=== PATIENT | male | born 1970 | race Caucasian/White ===

== ENCOUNTER 2021-10-22 19:26 | Emergency (ER) | payer BC, SELFPAY ==
[2021-10-22] VITALS (46 sets, daily range): BP systolic 104–141; BP diastolic 57–87; PULSE 58–117; RESP 11–22; TEMP 36.1; O2SAT 94–98
--- NOTE | 2021-10-22 19:30 | RT.EKG_ITS ---
APPROVED REPORT Exam: Resting ECG Reason for Exam: chest pain Patient Location: E HR:105 bpm ECG Measurements Heart Rate 105 AXIS ND [id number] P [id number] QRSd 102 QRS 24 QT 350 T -29 QTc 463 Conclusion Atrial fibrillation...V-rate 67-143, irreg A-activity Nonspecific T abnormalities, inferior leads...T <-0.10mV, II III aVF ST elev, probable normal early repol pattern...ST elevation, age<55. Afib. Benign early repolarization. 1mm ST elevation in I and aVL but does not meet criteria for STEMI . T wave inversion in III and aVF. No old EKG to compare. I have reviewed and interpreted ECG and agree with software generated interpretation.
--- NOTE | 2021-10-22 19:30 | RT.EKG_ITS ---
APPROVED REPORT Exam: Resting ECG Reason for Exam: chest pain Patient Location: E HR:68 bpm ECG Measurements Heart Rate 68 AXIS MT [id number] P [id number] QRSd 98 QRS 42 QT 392 T -10 QTc 418 Conclusion Atrial fibrillation...V-rate 62- 68, irreg A-activity ST elev, probable normal early repol pattern...ST elevation, age<55 Physician:ST elevation is NOT STEMI.Likely repol. inverted t wave in III. Morphology unchanged from E KG done 3 Hrs prior during code black.
--- NOTE | 2021-10-22 20:12 | W.ED.GENAD ---
Discharge Plan Disposition Patient Disposition: HOME Condition: Stable Discharge Details Clinical Impression: Atrial fibrillation, Dehydration Primary Care Provider: None,None ED Provider: Sondra Lemus Home Meds and New Rx's Prescriptions: Continued diltiazem HCl 240 mg capsule,extended release 24 hr 240 mg PO DAILY loratadine [Claritin] 10 mg Tablet 10 mg PO DAILY Discharge Instructions Instructions: A-fib (Atrial Fibrillation) (ED), Dehydration (ED) Additional Instructions: Your labs are concerning for dehydration. Please encourage water intake. Your atrial fibrillation, while not back in normal sinus rhythm, is within a normal rate. As we discussed, your risk for stroke over the next year is quite low at 0.6%. Please take aspirin daily. Full dose aspirin is available [id number]. You received a dose tonight and next dose will not be due until tomorrow. Please continue with your diltiazem as previously prescribed. I have referred you to local primary care, care management should call you to schedule this. I have also referred you to cardiology for continued follow-up, please call to schedule follow-up appointment. Please also return tomorrow to meet with respiratory therapy to have Holter monitor placed. If you develop chest pain, shortness of breath, lightheadedness, or other new/worsening symptom please seek care urgently once again. Referrals: Ashly Gipson MD [ [facility]FF [facility]YS[facility]IAN] - Discharge Orders Other Ambulatory Orders: Holter Monitor (Routine) Timeframe: 1 Week Facility: [facility] - Location: Respiratory Therapy Ordered By: Sondra Lemus Medical Decision Making Patient is a pleasant 51-year-old male, accompanied by his significant other, with chief complaint of atrial fibrillation. He has had this 1 other time, about 2 years ago, both episodes brought on when mountain biking. Reports that he was diagnosed with atrial fibrillation at an emergency department in [place] and was electronically cardioverted at that time. He has been on 240 mg p.o. diltiazem since then, typically doses himself at night. States that he went into atrial fibrillation at 6 PM while mountain biking this evening. States that he has more exertional dyspnea when she is in atrial fibrillation but is otherwise asymptomatic. No palpitations, chest pain, shortness of breath. Denies any nausea, lightheadedness. HPI General Date/Time Provider Initiated Documentation: 10/22/21 19:41. Limitations to Documentation: no limitations. Information obtained by: patient and RN notes reviewed. History of Present Illness 51 year old M presents to the emergency department with the chief complaint of atrial fibrillation, described as moderate and similar to prior episodes, Quality is described as other (no pain, more readily fatigued with exertion), Patient reports no radiation. Patient started experiencing this hour(s) and it has been now resolved. Immobilization improves symptom(s), Movement worsens symptoms . Patient notes diaphoresis; denies chest pain, cough, fever/chills, malaise, nausea/vomiting, rash, shortness of breath and syncope. Patient did receive the following treatments prior to arrival, none Related Data Home Medications Medication Instructions Recorded Confirmed diltiazem HCl 240 mg capsule,24 240 mg PO DAILY 09/30/21 10/22/21 hr,extended release loratadine 10 mg tablet (Claritin) 10 mg PO DAILY 10/22/21 10/22/21 Allergies Allergy/AdvReac Type Severity Reaction Status Date / Time kiwi Allergy Severe Unverified 10/22/21 19:42 General Stated Complaint: Palpitatns JERI: 2 Review of Systems Constitutional Constitutional: Reports as per HPI, Denies fever(s) and Denies lethargy Eyes Eyes: Denies change in vision ENT Ears, Nose, Mouth, and Throat: Denies dizziness Cardiovascular Cardiovascular: Reports as per HPI Respiratory Respiratory: Reports as per HPI, Denies chest congestion, Denies cough, Denies pain on inspiration and Denies pain with cough Gastrointestinal Gastrointestinal: Reports as per HPI, Denies abdominal pain, Denies diarrhea, Denies nausea and Denies vomiting Genitourinary Genitourinary: Denies system reviewed and no additional complaints, except as documented (denies change in urinary habits) Musculoskeletal Musculoskeletal: Reports as per HPI and Denies back pain Integumentary/Breasts Skin/Breast: Reports as per HPI and Denies rash Neurologic Neurologic: Reports as per HPI and Denies dizziness PFSH All Active Problems (Updated 10/23/21 @ 00:08 by JACEK Reeves) Atrial fibrillation (Chronic) Dehydration (Acute) Medical History (Updated 10/23/21 @ 00:08 by JACEK Reeves) History of blood transfusion Social History Smoking/Tobacco Use Status: Never Smoking risk assessment performed?: Yes Substance use type: does not use Exam Const General: cooperative, healthy appearing, comfortable, no acute distress and well developed Nutritional Appearance: average body habitus and well nourished Orientation: alert, awake and oriented x3 [facility] Head: normal to inspection Ears: hearing grossly normal bilaterally Mouth: moist mucous membranes Chest Chest: normal inspection of the chest, normal palpation of entire chest wall and no crepitus Resp Effort & Inspection: normal respiratory effort, able to speak in complete sentences and no respiratory distress Auscultation: clear to auscultation bilaterally, no rales, no rhonchi and no wheezes Cardio Rate: regular rate Rhythm: regular rhythm Heart Sounds: S1 normal and S2 normal GI Inspection: normal to inspection, no edema and non-distended Palpation: soft, no hepatosplenomegaly, not firm, no guarding, not rigid and nontender Auscultation: normal bowel sounds Back/Spine/Pelvis Back: no CVA tenderness Thoracic/Lumbar Spine: thoracic and lumbar spine normal to inspection Skin General skin exam: no rashes or lesions noted Trauma: no lacerations or abrasions Neuro General: patient alert, patient awake and patient oriented x3 Cognition: normal cognition Speech: speech normal Gait: normal gait Extrem General: normal to inspection, capillary refill normal, no pedal edema, no calf tenderness and normal gait Psych Appearance: grossly normal and well kempt Mental Status: mental status grossly normal Speech and Movement: speech and movement normal Course Vital Signs Vital signs: Vital Signs Temperature 36.1 C L 10/22/21 19:38 Pulse 109 H 10/22/21 19:38 Respiratory Rate 15 10/22/21 19:38 Blood Pressure 141/78 H 10/22/21 19:38 Pulse Oximetry 97 10/22/21 19:38 Temperature 36.1 C L 10/22/21 19:38 Temperature Source Temporal Artery Scan 10/22/21 19:38 Pulse 109 H 10/22/21 19:38 Respiratory Rate 15 10/22/21 19:38 Respiratory Effort 10/22/21 19:38 Blood Pressure 141/78 H 10/22/21 19:38 Blood Pressure Position Supine 10/22/21 19:38 Pulse Oximetry 97 10/22/21 19:38 Pain Level 0 10/22/21 19:38
--- NOTE | 2021-10-22 20:15 | DI.RAD_ITS ---
Exam(s) XR PORTABLE CHEST AP EXAM: XR PORTABLE CHEST AP CLINICAL HISTORY: a.fib TECHNIQUE: 2D digital imaging was performed of the chest. One image was obtained. An AP view was ob tained. COMPARISON: No exams were available for comparison FINDINGS: MEDIASTINUM: Normal. HEART: Normal. PULMONARY VASCULATURE: Normal. LUNGS: Clear. PLEURAL SPACE: No pleural effusion or pneumothorax. BONE:Within normal limits for the patient's age. OTHER FINDINGS:Normal. IMPRESSION: No acute pulmonary findings. DATA REPOSITORY: RADIATION DOSE DELIVERED:
[2021-10-22 20:37] LABS: Abs Immature Grans 0.03 10^3/uL (0.0-0.06); Absolute Basophil Count 0.04 10^3/uL (0.0-0.2); Absolute Eosinophil Count 0.17 10^3/uL (0.0-0.7); Absolute Lymphocyte Count 1.95 10^3/uL (1.2-3.4); Absolute Monocyte Count 0.64 10^3/uL (0.1-0.8); Absolute Neutrophil Count 6.05 10^3/uL (1.2-6.7); Basophils % 0.5; Eosinophils % 1.9; HCT 43.9 % (40.0-50.0); HGB 15.9 g/dL (13.5-17.5); Immature Grans % 0.3; MCH 30.3 pg (27.0-33.0); MCHC 36.2 % (32.0-36.0); MCV 84 fL (80-95); MPV 10.9 fL (8.0-11.0); Monocytes % 7.2; Neutrophils % 68.1; Platelet Count 247 10^3/uL (130-400); RBC 5.24 10^6/uL (4.36-5.78); RDW 11.9 % (11.8-14.1); RDW-SD 36.2 fL; WBC 8.88 10^3/uL (4.4-10.8)
[2021-10-22] MEDS: dilTIAZem 25 MG/5 ML VIAL 15 MG IVP (20:45)
[2021-10-22] MEDS: Normal Saline 1,000 ML 1000 ML IV ×2 (20:45→22:00)
[2021-10-22 21:01] LABS: ALT 41 U/L (16-63); AST 26 U/L (15-37); Alkaline Phosphatase 79 U/L (46-116); Anion Gap 9.8 mmol/L (3-11); BUN 21 mg/dL (7-18); Bilirubin, Total 0.8 mg/dL (0.2-1.0); CO2 27.2 mmol/L (21.0-32.0); CREATININE 1.4 mg/dL (0.70-1.30); Calcium 9.1 mg/dL (8.5-10.1); Chloride 102 mmol/L (98-107); Estimated GFR 61.61 (mL/min/1.73m2); Glucose 136 mg/dL (74-106); Potassium 3.7 mmol/L (3.5-5.1); Sodium 139 mmol/L (136-145); Total Protein 7.9 g/dL (6.4-8.2); Troponin I < 50 ng/L (<or=60)
[2021-10-22 21:12] LABS: Magnesium 2.1 mg/dL (1.8-2.4); TSH (W/Ref FT4) 2.74 uIU/mL (0.36-3.74)
--- NOTE | 2021-10-22 21:17 | DI.VRAD_ITS ---
PROCEDURE INFORMATION: Exam: XR Chest Exam date and time: 10/22/2021 8:38 PM Age: 51 years old Clinical indication: Other: A. Fib TECHNIQUE: Imaging protocol: Radiologic exam of the chest. Views: 1 view. COMPARISON: No relevant prior studies available. FINDINGS: Lungs: Chronic interstitial prominence. No consolidation. Pleural spaces: No pleural effusion. No pneumothorax. Heart/Mediastinum: Mild cardiomegaly. Bones/joints: Unremarkable. IMPRESSION: No acute findings. Dictated and Authenticated by: Arsalan Laird MD. Ordering:AMBREEN Amaro MD
[2021-10-22] MEDS: Aspirin 325 MG TAB PO (22:13)
--- NOTE | 2021-10-22 23:00 | RT.EKG_ITS ---
APPROVED REPORT Exam: Resting ECG Reason for Exam: chest pain Patient Location: E HR:68 bpm ECG Measurements Heart Rate 68 AXIS FL [id number] P [id number] QRSd 98 QRS 42 QT 392 T -10 QTc 418 Conclusion Atrial fibrillation...V-rate 62- 68, irreg A-activity ST elev, probable normal early repol pattern...ST elevation, age<55 Physician:ST elevation is NOT STEMI.Likely repol. inverted t wave in III. Morphology unchanged from E KG done 3 Hrs prior during code black.
[2021-10-22 23:52] LABS: Troponin I 51 ng/L (<or=60)
[2021-10-23] VITALS: BP 125/88; PULSE 63; PULSE 80; RESP 24; O2SAT 96
[2021-10-23 00:01] VITALS: PULSE 64; RESP 23; O2SAT 95
[2021-10-23 00:19] VITALS: BP 125/88; PULSE 63; RESP 23; TEMP 36.1; O2SAT 95
--- NOTE | 2021-10-23 17:16 | CMACTNOTE_ITS ---
- If Service Date Differs Date of service: 10/23/21 Time of Service: 17:16 Care Management Activity Note Buck is seen in the ED for atrial fibrillation and dehydration. At the request of ED provider, AUDRA coordinates a referral to Shira De MD, of [facility], on-call provider, to assist Buck in obtaining a follow up appointment and in establishing care with a PCP. He has BCBS for insurance.
== END 2021-10-23 00:26 | disposition home or self-care (01) ==
PROVIDERS: Emergency Provider Physician Assistant
DX: I48.91 Unspecified atrial fibrillation (principal); E86.0 Dehydration
CPT/HCPCS: 36415; 80053; 93005; 96361; 96374; 99284; 71045; 83735; 84443; 84484; 85025; 93010; 99285

== ENCOUNTER 2021-10-23 09:20 | Outpatient (RCR) | payer BC, SELFPAY ==
--- NOTE | 2021-10-23 14:30 | HOLTER_ITS ---
APPROVED REPORT Conclusion This is a 48-hour Holter monitor, reportedly ordered for atrial fibrillation Rhythm throughout was sinus with an average heart rate of 64. Minimum was 47, maximum 129 There were rare isolated ventricular ectopic beats There were occasional atrial premature beats There was no atrial fibrillation, no high-grade AV block, no pauses greater than 3 seconds There were no apparent patient symptoms
== END 2021-11-13 23:59 | disposition home or self-care (01) ==
LOC: RT 09:20
PROVIDERS: Visit Provider Physician Assistant
DX: I48.91 Unspecified atrial fibrillation (principal); I49.1 Atrial premature depolarization
CPT/HCPCS: 93225; 93226

== ENCOUNTER 2022-02-11 14:33 | Emergency (ER) | payer BC, SELFPAY ==
--- NOTE | 2022-02-11 14:30 | RT.EKG_ITS ---
APPROVED REPORT Exam: Resting ECG Reason for Exam: afib Patient Location: E HR:76 bpm ECG Measurements Heart Rate 76 AXIS [place] 157 P 22 QRSd 103 QRS 33 QT 379 T -21 QTc 427 Conclusion Sinus rhythm.. Nonspecific T abnormalities, inferior leads...T <-0.10mV, II III aVF ST elev, probable normal early repol pattern...ST elevation, age<55
[2022-02-11 14:40] VITALS: BP 141/89; PULSE 77; RESP 18; O2SAT 97
--- NOTE | 2022-02-11 15:17 | W.ED.GENAD ---
Discharge Plan Disposition Patient Disposition: Home Condition: Improving Discharge Details Clinical Impression: PAF (paroxysmal atrial fibrillation) Primary Care Provider: None,None ED Provider: Vishnu Guzman Home Meds and New Rx's Prescriptions: Continued diltiazem HCl 240 mg capsule,extended release 24 hr 240 mg PO DAILY No Action loratadine [Claritin] 10 mg Tablet 10 mg PO DAILY Discharge Instructions Instructions: A-fib (Atrial Fibrillation) (ED) Additional Instructions: Please follow-up for outpatient stress testing, the office will call you with an appointment time. We have also asked for a local primary care follow-up. There is some evidence that Mandy may be preferred to Claritin in preventing any cardiac arrhythmias. Consider stopping Claritin and beginning Mandy daily if needed for allergies. Return for recurrent tachycardia, palpitations, profound weakness, development of chest pain, or any other acute concerns. Please continue daily aspirin. Limit physical activity to light exertion only. Laboratory Results - last 24 hr 02/11/22 02/11/22 02/11/22 15:24 15:24 15:24 WBC 8.44 RBC 5.39 Hgb 16.3 Hct 45.4 MCV 84 MCH 30.2 MCHC 35.9 RDW 12.2 Plt Count 236 MPV 10.4 Immature Gran % 0.6 Neutrophils % 62.1 Lymphocytes % 24.1 Monocytes % 7.6 Eosinophils % 5.1 Basophils % 0.5 Nucleated RBC % 0.0 Absolute Neutrophils 5.25 Absolute Lymphocytes 2.03 Absolute Monocytes 0.64 Absolute Eosinophils 0.43 Absolute Basophils 0.04 Sodium 139 Cancelled Potassium 3.6 Cancelled Chloride 103 Cancelled Carbon Dioxide 29.4 Cancelled Anion Gap 6.6 Cancelled BUN 21 H Cancelled Creatinine 1.2 Cancelled Est GFR (CKD-EPI 2020) 74.13 Cancelled Glucose 126 H Cancelled Calcium 9.2 Cancelled Magnesium 2.0 Total Bilirubin 0.4 Cancelled AST 28 Cancelled ALT 59 Cancelled Alkaline Phosphatase 76 Cancelled Troponin I 61 H Total Protein 7.8 Cancelled Albumin 4.0 Cancelled TSH 2.97 Urine Color Urine Clarity Urine pH Ur Specific [place] Urine Protein Urine Ketones Urine Blood Urine Nitrite Urine Bilirubin Urine Urobilinogen Ur Leukocyte Esterase Urine Glucose 02/11/22 02/11/22 15:47 16:54 WBC RBC Hgb Hct MCV MCH MCHC RDW Plt Count MPV Immature Gran % Neutrophils % Lymphocytes % Monocytes % Eosinophils % Basophils % Nucleated RBC % Absolute Neutrophils Absolute Lymphocytes Absolute Monocytes Absolute Eosinophils Absolute Basophils Sodium Potassium Chloride Carbon Dioxide Anion Gap BUN Creatinine Est GFR (CKD-EPI 2020) Glucose Calcium Magnesium Total Bilirubin AST ALT Alkaline Phosphatase Troponin I < 50 Total Protein Albumin TSH Urine Color Yellow Urine Clarity Clear Urine pH 5.5 Ur Specific [place] 1.025 Urine Protein Negative Urine Ketones Negative Urine Blood Negative Urine Nitrite Negative Urine Bilirubin Negative Urine Urobilinogen 0.2 Ur Leukocyte Esterase Negative Urine Glucose Negative Medical Decision Making This is a 51-year-old male with a history of paroxysmal atrial fibrillation. States he was initially diagnosed at an emergency department in [place] approximate 4 years ago when he had cardioversion performed. Recurred this late summer, he was seen in this ER, found to be dehydrated and improved with fluids. He subsidy placed on a Holter monitor which showed no further episodes of atrial fibrillation. Patient states he usually takes his diltiazem once in the evening at night. This morning he woke up had coffee, single glass of water, and went mountain biking with a high level of exertion. He subsidy felt weak. He did not notice a fast heart rate but his watch noted a maximum heart rate of proxy 170 and episodes of A. fib, although they were not correlated to the fast heart rate. Patient arrives feeling improved. He is in a normal sinus rhythm with a rate of 70. With rising at the bedside his pulse rate is approximately 20 points. Likely a component of dehydration. Patient does also take a daily Claritin but does not take decongestant beyond the antihistamine. We reviewed his electronic tracings on his phone which show atrial fibrillation while he was symptomatic today. Its not clear what heart rate was associated with this. Upon arrival the patient is in a normal sinus rhythm with a pulse approximately 75. Patient placed on a bottom turner, screening labs including troponin obtained he is referred for a screening chest x-ray. Chest x-ray unremarkable. Patient CBC, basic chemistries are without significant finding. His initial troponin was 61, repeat was less than 50. This [place] area discretely abnormal troponin may likely be due to persistent tachycardia that the patient describes during exercise. Nonetheless, I will order an outpatient stress test and we will arrange cardiology follow-up. I will have him limit physical exertion and he will continue daily aspirin as well as his calcium channel hoda. Patient stable, improved, without discomfort. He understands indications to return to the ER. Lab Data Lab results reviewed: Yes I reviewed the patient's lab results. Labs: Laboratory Results - last 24 hr 02/11/22 02/11/22 02/11/22 15:24 15:24 15:24 WBC 8.44 RBC 5.39 Hgb 16.3 Hct 45.4 MCV 84 MCH 30.2 MCHC 35.9 RDW 12.2 Plt Count 236 MPV 10.4 Immature Gran % 0.6 Neutrophils % 62.1 Lymphocytes % 24.1 Monocytes % 7.6 Eosinophils % 5.1 Basophils % 0.5 Nucleated RBC % 0.0 Absolute Neutrophils 5.25 Absolute Lymphocytes 2.03 Absolute Monocytes 0.64 Absolute Eosinophils 0.43 Absolute Basophils 0.04 Sodium 139 Cancelled Potassium 3.6 Cancelled Chloride 103 Cancelled Carbon Dioxide 29.4 Cancelled Anion Gap 6.6 Cancelled BUN 21 H Cancelled Creatinine 1.2 Cancelled Est GFR (CKD-EPI 2020) 74.13 Cancelled Glucose 126 H Cancelled Calcium 9.2 Cancelled Magnesium 2.0 Total Bilirubin 0.4 Cancelled AST 28 Cancelled ALT 59 Cancelled Alkaline Phosphatase 76 Cancelled Troponin I 61 H Total Protein 7.8 Cancelled Albumin 4.0 Cancelled TSH 2.97 Urine Color Urine Clarity Urine pH Ur Specific [place] Urine Protein Urine Ketones Urine Blood Urine Nitrite Urine Bilirubin Urine Urobilinogen Ur Leukocyte Esterase Urine Glucose 02/11/22 02/11/22 15:47 16:54 WBC RBC Hgb Hct MCV MCH MCHC RDW Plt Count MPV Immature Gran % Neutrophils % Lymphocytes % Monocytes % Eosinophils % Basophils % Nucleated RBC % Absolute Neutrophils Absolute Lymphocytes Absolute Monocytes Absolute Eosinophils Absolute Basophils Sodium Potassium Chloride Carbon Dioxide Anion Gap BUN Creatinine Est GFR (CKD-EPI 2020) Glucose Calcium Magnesium Total Bilirubin AST ALT Alkaline Phosphatase Troponin I < 50 Total Protein Albumin TSH Urine Color Yellow Urine Clarity Clear Urine pH 5.5 Ur Specific [place] 1.025 Urine Protein Negative Urine Ketones Negative Urine Blood Negative Urine Nitrite Negative Urine Bilirubin Negative Urine Urobilinogen 0.2 Ur Leukocyte Esterase Negative Urine Glucose Negative HPI General Mode of arrival: ambulatory. Date/Time Provider Initiated Documentation: 02/11/22 14:37. Limitations to Documentation: no limitations. Information obtained by: patient. History of Present Illness 51 year old M presents to the emergency department with the chief complaint of Weakness, question recurrent A. fib, described as moderate, and is localized to the chest. and it has been now resolved. No relieving factors improve symptom(s), No exacerbating factors reported . Patient notes weakness; denies chest pain, headaches, shortness of breath and syncope. Patient did receive the following treatments prior to arrival, none Related Data Home Medications Medication Instructions Recorded Confirmed diltiazem HCl 240 mg capsule,24 240 mg PO DAILY 09/30/21 10/22/21 hr,extended release loratadine 10 mg tablet (Claritin) 10 mg PO DAILY 10/22/21 10/22/21 Allergies Allergy/AdvReac Type Severity Reaction Status Date / Time kiwi Allergy Severe Unverified 10/22/21 19:42 General Stated Complaint: GenMedical JERI: 3 Review of Systems Narrative: No syncope. Noted A. fib on his heart rate monitor. No significant shortness of breath. No chest pain. Otherwise well. 6 systems reviewed PFSH All Active Problems (Updated 02/11/22 @ 18:13 by Vishnu Guzman MD) PAF (paroxysmal atrial fibrillation) (Acute) Medical History History of blood transfusion Social History Smoking/Tobacco Use Status: Never Smoking risk assessment performed?: Yes Alcohol Intake: current Alcohol Intake frequency: 0-2 drinks per day Alcohol type: beer Substance use type: does not use Do you feel safe at home: Yes Do you feel safe in your relationship?: Yes Exam Narrative Exam Narrative: GEN: awake, alert, oriented 3. Pleasant, well groomed, interactive. HEAD: Normocephalic, atraumatic ENT: Mucous membranes moist, oropharynx unremarkable, External ear exam unremarkable EYES: PERRL, EOMI NECK: Full ROM, no TIFFANIE, no menigismus CHEST/RESP: Nontender, clear to auscultation bilateral, no wheeze/rhonchi/rales CARDIOVASCULAR: RRR, no murmur, rub joseph. 2+ Rad pulse bilateral ABDOMEN: Soft, nontender, no mass. +Bowel sounds EXT: Full ROM, no edema, no rash Neuro: Grossly normal neurologic exam, conversant, interactive. Psych: Speech fluent, thoughts congruent, affect normal Course Vital Signs Vital signs: Vital Signs Pulse 77 02/11/22 14:40 Respiratory Rate 18 02/11/22 14:40 Blood Pressure 141/89 H 02/11/22 14:40 Pulse Oximetry 97 02/11/22 14:40 Pulse 77 02/11/22 14:40 Respiratory Rate 18 02/11/22 14:40 Respiratory Effort 02/11/22 15:00 Respiratory Depth Normal 02/11/22 15:00 Respiratory Pattern Normal 02/11/22 15:00 Blood Pressure 141/89 H 02/11/22 14:40 Blood Pressure Position Supine 02/11/22 14:40 Pulse Oximetry 97 02/11/22 14:40 Oxygen Delivery Method Room Air 02/11/22 14:40 Oxygen Flow Rate 0 02/11/22 14:40 PAWSS Have you Been Recently Intoxicated or Drunk Within the Last 30 days?: No Have you Ever Experienced Previous Episodes of Alcohol Withdrawal?: No Have you ever Experienced Withdrawal Seizures?: No Have you ever Experienced Delirium Tremens(DT)s?: No Have you ever undergone Alcohol Rehabilitation Treatment (i.e, inpt ot outpatient treatment programs)?: No Have you ever Experienced Blackouts?: No Have you ever Combined Alcohol with other Downers within the last 90 days?: No Have you ever Combined Alcohol with any other Substance of Abuse during the last 90 days?: No Positive Blood Alcohol level on Presentation? [PCS.BAL]: No Evidence of Increased Autonomic Activity (i.e. HR>120, tremor, sweating, agitation, nausea)?: No Result: 0
--- NOTE | 2022-02-11 15:18 | NUR.NOTE ---
Nursing Note: Referral given to Care Management for needs PCP, establish care/routine follow up. Referral faxed to [facility] Cardiology for new afib, mulitple ED visits for this; within a couple weeks.
[2022-02-11 15:31] LABS: Abs Immature Grans 0.05 10^3/uL (0.0-0.06); Absolute Basophil Count 0.04 10^3/uL (0.0-0.2); Absolute Eosinophil Count 0.43 10^3/uL (0.0-0.7); Absolute Lymphocyte Count 2.03 10^3/uL (1.2-3.4); Absolute Monocyte Count 0.64 10^3/uL (0.1-0.8); Absolute Neutrophil Count 5.25 10^3/uL (1.2-6.7); Basophils % 0.5; Eosinophils % 5.1; HCT 45.4 % (40.0-50.0); HGB 16.3 g/dL (13.5-17.5); Immature Grans % 0.6; Lymphocytes % 24.1; MCH 30.2 pg (27.0-33.0); MCHC 35.9 % (32.0-36.0); MCV 84 fL (80-95); MPV 10.4 fL (8.0-11.0); Monocytes % 7.6; Neutrophils % 62.1; Platelet Count 236 10^3/uL (130-400); RBC 5.39 10^6/uL (4.36-5.78); RDW 12.2 % (11.8-14.1); RDW-SD 36.9 fL; WBC 8.44 10^3/uL (4.4-10.8)
[2022-02-11] MEDS: Normal Saline 1,000 ML 1000 ML IV (15:52)
[2022-02-11 15:56] LABS: Bilirubin Negative (Negative); Blood Negative (Negative); Clarity Clear (Clear); Glucose Negative (Negative); Ketones Negative (Negative); Leukocyte Esterase Negative (Negative); Nitrite Negative (Negative); Specific Gravity 1.025 (1.005-1.025); Urobilinogen 0.2 EU/dL (Up TO 0.2); pH 5.5 (5-8)
[2022-02-11 16:13] LABS: ALT 59 U/L (16-63); Alkaline Phosphatase 76 U/L (46-116); Anion Gap 6.6 mmol/L (3-11); BUN 21 mg/dL (7-18); Bilirubin, Total 0.4 mg/dL (0.2-1.0); CO2 29.4 mmol/L (21.0-32.0); CREATININE 1.2 mg/dL (0.70-1.30); Calcium 9.2 mg/dL (8.5-10.1); Chloride 103 mmol/L (98-107); Estimated GFR 74.13 (mL/min/1.73m2); Glucose 126 mg/dL (74-106); Potassium 3.6 mmol/L (3.5-5.1); Sodium 139 mmol/L (136-145); TSH 2.97 uIU/mL (0.36-3.74); Total Protein 7.8 g/dL (6.4-8.2)
[2022-02-11 16:14] LABS: Troponin I 61 ng/L (<or=60)
[2022-02-11 16:22] LABS: AST 28 U/L (15-37)
[2022-02-11 17:23] LABS: Troponin I < 50 ng/L (<or=60)
--- NOTE | 2022-02-11 18:25 | NUR.NOTE ---
Nursing Note: Stress test order (Regular Exercise Treadmill Test) faxed to [facility] for scheduling. Instructions given to patient.
== END 2022-02-11 18:29 | disposition home or self-care (01) ==
PROVIDERS: Emergency Provider Emergency Medicine
DX: I48.91 Unspecified atrial fibrillation (principal)
CPT/HCPCS: 80053; 93005; 96360; 99284; 81003; 83735; 84443; 84484; 85025; 93010

== ENCOUNTER 2022-02-16 00:25 | Outpatient (CLI) | payer BC, SELFPAY ==
--- NOTE | 2022-02-16 09:00 | ETT_ITS ---
APPROVED REPORT Exam: Exercise Treadmill Patient Location: Out-Patient Room/Bed: Stress Nurse: Ivana Mittal RN Ordering Provider:AURA IRBY, Contact Number: [phone] BMI: 31.19 Baseline Rhythm: Sinus Bradycardia Indications: Chest pain Medical History Medical History: Paroxysmal Afib, hypertension, obesity Cardiac Medications: Diltiazem, aspirin Allergies: Kiwi Cardiac Risk Factors: Hypertension Previous Cardiac Procedures: Cardioversion x2 Pretest Chest Pain Characteristics: None Exercise History: Physically active Physical Disabilities: None Lung Sounds: Clear to auscultation Heart Sounds: Regular Stress Test Details Test: Exercise stress testing was performed using a Gabriel protocol. Rest Stress HR Resting HR Supine: 57 bpm Max Heart Rate (APMHR): 171 bpm Resting HR Standin bpm Target HR (85% APMHR): 145 bpm Max HR Achieved: 176 bpm % of APMHR: 103 Recovery HR: 85 bpm HR response to stress: Normal HR response to stress BP Resting BP Supine: 148/98 mmHg Resting BP Standin/98 mmHg Max BP: 200/82 mmHg Recovery BP: 148/96 mmHg BP response to stress: Abnormal hypertensive response to stress. ECG Resting ECG: Sinus Bradycardia Ectopy: None Stress ECG: Sinus Tachycardia ST Change: No significant ST segment changes noted Arrhythmia: Occasional PVCs Recovery ECG: Sinus Rhythm Recovery ST Change: No significant ST segment changes noted Recovery Arrhythmia: Rare PVC, 4 beat SVT Clinical Reason for Termination: Fatigue Stress Symptoms: General Fatigue Exercise duration: 12 min38 sec Highest Stage Reached: Stage 5: 5.0 mph at 18% grade. Exercise capacity: 13.91 METs Angina Score: None Kc Treadmill Score: 10.7 Rate Pressure Product: [id number] Stress ECG Conclusion 1. The resting electrocardiogram showed inferior and anterolateral T abnormalities 2. Patient exercised on a Gabriel protocol and completed a workload of 13.91 METS, stopping due to fati eric 3. Resting hypertension, mildly hypertensive blood pressure response to exercise. Normal heart rate response, patient achieved greater than 100% of predicted heart rate for age 4. There was no electrocardiographic evidence of myocardial ischemia 5. There were no significant dysrhythmias Kc Treadmill Score is 10.7 which is Low risk. Stress Test Summary STAGE Time (mins) Speed (mph) Grade (%) HR BP SpO2 SYMPTOMS METS Supine 57 148/98 Standing 58 150/98 98% 1 3 1.7 10 100 148/90 95% 4.5 2 6 2.5 12 124 190/88 93% 7 3 9 3.4 14 148 198/88 93% 10 4 12 4.2 16 164 200/82 93% 13 5 15 5.0 18 171 15 1 min recovery 143 200/80 95% 3 min recovery 92 192/82 97% 6 min recovery 85 148/96 96%
== END 2022-02-16 00:45 ==
LOC: DI 00:25
PROVIDERS: Visit Provider Emergency Medicine
DX: R07.9 Chest pain, unspecified (principal)
CPT/HCPCS: 93017

== ENCOUNTER 2023-07-13 05:17 | Outpatient (CLI) | payer BC, SELFPAY ==
[2023-07-13 11:38] LABS: ALT 61 U/L (16-63); AST 33 U/L (15-37); Alkaline Phosphatase 73 U/L (46-116); BUN 14 mg/dL (7-18); Calcium 9.3 mg/dL (8.5-10.1); Calculated LDL 104 mg/dL (<100); Chloride 104 mmol/L (98-107); Cholesterol 197 mg/dL (<200); Estimated GFR 91.69 (mL/min/1.73m2); Glucose 108 mg/dL (74-106); HDL Cholesterol 51 mg/dL (40-60); Potassium 4.7 mmol/L (3.5-5.1); Sodium 142 mmol/L (136-145); Total Protein 7.3 g/dL (6.4-8.2); Triglyceride 213 mg/dL (<150)
== END 2023-07-13 05:18 | disposition home or self-care (01) ==
LOC: LBO 05:18
PROVIDERS: PCP Family Medicine; Visit Provider Family Medicine
DX: I48.0 Paroxysmal atrial fibrillation (principal)
CPT/HCPCS: 36415; 80053; 80061

== ENCOUNTER 2024-10-02 16:33 | Outpatient (REF) | payer OTHER, SELFPAY ==
[2024-10-02 21:17] LABS: Abs Immature Grans 0.05 10^3/uL (0.0-0.06); HCT 40.9 % (40.0-50.0); HGB 14.6 g/dL (13.5-17.5); Immature Grans % 0.4 %; MCH 30.1 pg (27.0-33.0); MCHC 35.7 % (32.0-36.0); MCV 84 fL (80-95); MPV 11.3 fL (8.0-11.0); Platelet Count 233 10^3/uL (130-400); RBC 4.85 10^6/uL (4.36-5.78); RDW 12.0 % (11.8-14.1); RDW-SD 36.6 fL; WBC 11.38 10^3/uL (4.4-10.8)
[2024-10-02 21:42] LABS: Uric Acid 7.7 mg/dL (3.5-7.2)
== END 2024-10-02 16:34 | disposition home or self-care (01) ==
LOC: LBN 16:33
PROVIDERS: PCP Family Medicine; Visit Provider Physician Assistant
DX: M10.9 Gout, unspecified (principal)
CPT/HCPCS: 84550; 85025